=== PATIENT | female | born 2000 | race African-American/Black ===

== ENCOUNTER 2021-02-28 10:17 | Inpatient (IN) | payer SELFPAY ==
[~2021-02-28] VITALS: Ht 320 cm; Wt 64.0 kg
[2021-02-28] MEDS ORDERED: SODIUM CHLORIDE 0.9% 1,000 ML IV ONE (11:00)
[2021-02-28] MEDS: ACETAMINOPHEN 325MG TABLET PO STA ×2 (11:29→11:32)
[2021-02-28 11:34] LABS: BASOPHILS % 1.2 % (0.0-2.0); EOSINOPHILS % 2.5 % (0.0-5.0); HEMATOCRIT. 22.9 % (36.0-48.0); LYMPHOCYTES % 31.1 % (20.0-50.0); MEAN CORPUSCULAR HEMOGLOBIN 20.6 pg (28.0-32.0); MEAN CORPUSCULAR VOLUME 68.9 fL (81.0-99.0); MEAN PLATELET VOLUME 8.4 fl (7.4-10.4); MONOCYTES % 8.4 % (2.0-8.0); NEUTROPHILS % 56.8 % (40.0-76.0); PLATELET 365 x1000/uL (130-400); RED BLOOD CELL COUNT 3.32 mill/uL (4.2-5.4)
[2021-02-28 11:37] LABS: HEMOGLOBIN. 6.9 g/dL (12.0-16.0)
[2021-02-28 11:49] LABS: CHLORIDE 109 mEq/L (98-107)
[2021-02-28 12:00] LABS: B-HCG QUANTITATIVE 5 mIU/mL (<3)
[2021-02-28 12:02] LABS: PLATELET ESTIMATE NORMAL
[2021-02-28 12:23] LABS: CLARITY URINE CLEAR (CLEAR); COLOR URINE YELLOW (YELLOW); KETONES URINE TRACE (NEGATIVE); LEUKOCYTE ESTERASE URINE NEGATIVE (NEGATIVE); NITRITE URINE NEGATIVE (NEGATIVE); OCCULT BLOOD URINE 2+ (NEGATIVE); PROTEIN URINE NEGATIVE (NEGATIVE); SPECIFIC GRAVITY URINE 1.024 (1.005-1.030)
[2021-02-28] MEDS ORDERED: ONDANSETRON HCL 4MG/2ML INJ IV PRN (19:15)
[2021-02-28] MEDS ORDERED: MAGNESIUM/ALUMINUM HYDROXIDE/SIMETHICONE 30ML UDC PO PRN (19:15)
[2021-02-28] MEDS ORDERED: ZOLPIDEM TARTRATE 5MG TABLET PO PRN (19:15)
[2021-02-28] MEDS ORDERED: DIPHENHYDRAMINE 50MG/ML VIAL IV PRN (19:15)
[2021-02-28] MEDS ORDERED: ACETAMINOPHEN 325MG TABLET PO PRN ×2 (19:15)
[2021-02-28] MEDS ORDERED: SODIUM CHLORIDE 0.9% 1,000 ML IV SCH (19:15)
[2021-02-28 21:55] LABS: TOTAL IRON BINDING CAPACITY 575 ug/dL (250-450)
[2021-03-01] MEDS ORDERED: MV,1TABL8 PO (02:51)
[2021-03-01 02:58] VITALS: BP 113/71
[2021-03-01 04:00] VITALS: BP 124/70
[2021-03-01 05:55] LABS: HEMATOCRIT 24.4 % (36.0-48.0); HEMOGLOBIN 7.5 g/dL (12.0-16.0); MEAN CORPUSCULAR HEMOGLOBIN 22.2 pg (28.0-32.0); MEAN CORPUSCULAR VOLUME 71.8 fL (81.0-99.0); PLATELET 310 x1000/uL (130-400); RED BLOOD CELL COUNT 3.39 mill/uL (4.2-5.4); RED CELL DISTRIBUTION WIDTH 20.9 % (11.6-14.6)
[2021-03-01] MEDS: IRON SUCROSE COMPLEX 100 MG/5 ML ML IV SCH ×2 (14:55→15:13)
[2021-03-01 16:00] VITALS: BP 118/69
== END 2021-03-01 16:40 | disposition home or self-care (01) | DRG 663 ==
LOC: ER 10:47 → EDBD 10:47 → MICUSO 13:38 → 6EST 23:35
PROVIDERS: ADMIT Internal Medicine; ATTEND Internal Medicine
PROC: 30233N1 Transfusion of Nonautologous Red Blood Cells into Peripheral Vein, Percutaneous Approach (ICD-10-PCS; principal; 2021-02-28)
DX: D64.9 Anemia, unspecified (principal); N93.9 Abnormal uterine and vaginal bleeding, unspecified
CPT/HCPCS: 36415; 76801; 80053; 81003; 83540; 83550; 83605; 84145; 84702; 85025; 85027; 86850; 86900; 86920; 99291; J7030; P9016